=== PATIENT | female | born 1985 | race Caucasian/White ===

== ENCOUNTER 2022-09-09 10:00 | Oncology outpatient (recurring) (ONCR) | payer MEDICARE, MEDICAID, SELFPAY ==
[2022-09-09 12:29] LABS: Basophils # 0.1 10^3/uL (0.0-0.1); Basophils % 0.6 %; Eosinophils # 0.1 10^3/uL (0.0-0.8); Eosinophils % 0.8 %; Hematocrit 42.4 % (37.0-47.0); Hemoglobin 14.2 g/dL (11.5-15.3); Lymphocytes # 4.3 10^3/uL (0.8-4.8); Lymphocytes % 24.9 %; Mean Corpuscular HGB Conc 33.5 g/dL (30.0-36.0); Mean Corpuscular Hemoglobin 29.2 pg (28.0-34.0); Mean Corpuscular Volume 87.1 fl (81-99); Mean Platelet Volume 11.2 fL (7.4-10.4); Monocytes # 1.5 10^3/uL (0.2-0.9); Monocytes % 8.9 %; Neutrophils # 11.15 10^3/uL (1.8-7.7); Neutrophils % 64.1 %; Nucleated Red Blood Cells % 0 %; Platelet Count 337 10^3/cmm (130-400); Red Blood Count 4.87 10^6/uL (4.1-5.3); Red Cell Distribution Width 13.2 % (12.1-15.1); White Blood Count 17.4 10^3/uL (4.0-10.0)
[2022-09-09 12:32] LABS: Erythrocyte Sedimentation Rate 29 mm/hr (0-15)
[2022-09-09 12:51] LABS: LAB Peripheral Smear Sent for Review
[2022-09-09 13:14] LABS: Alanine Aminotransferase 13 U/L (0-33); Albumin Level 3.5 g/dL (3.5-5.2); Alkaline Phosphatase 113 U/L (35-105); Aspartate Amino Transferase 16 U/L (0-32); Blood Urea Nitrogen 13 mg/dL (6-20); C Reactive Protein 10.1 mg/L (0.0-4.9); Calcium 9.1 mg/dL (8.5-10.5); Carbon Dioxide 22 mmol/L (22-29); Chloride 104 mmol/L (98-107); Creatinine Clr Calc Pharmacy 160.4966; Globulin 3.9 g/dL (1.3-4.6); Glomerular Filtration Rate 137.4 mL/min (90-130); Glucose 93 mg/dL (65-115); Lactate Dehydrogenase 143 U/L (135-214); Osmolality Calculated 284 mOsm/kg (285-295); Sodium 137 mmol/L (136-145); Total Bilirubin 0.4 mg/dL (0.15-1.2); Total Protein 7.4 g/dL (6.6-8.7); Vitamin B12 569 pg/mL (232-1245)
== END 2022-10-08 23:59 | disposition home or self-care (01) ==
PROVIDERS: Visit Provider Internal Medicine Medical Oncology
DX: D72.9 Disorder of white blood cells, unspecified (principal)
CPT/HCPCS: 36415; 80053; 82607; 83615; 85025; 85651; 86140; 88374; 99204

== ENCOUNTER 2022-10-09 08:13 | Outpatient (CLI) | payer MEDICARE, MEDICAID, SELFPAY ==
--- NOTE | 2022-10-09 08:30 | US_ITS ---
WS: [id number] INDICATION: RIGHT flank mass TECHNIQUE: Ultrasound soft tissue area of concern FINDINGS: Ultrasound soft tissue area of concern RIGHT rib. Ovoid slightly echogenic nodular area in the area of concern measuring 2.9 x 0.9 x 3.1 cm. This most likely represents incidental subcutaneous lipoma. No other suspicious findings. US/US abdomen limited [id number] IMPRESSION: Palpable nodule in the area of concern most likely represents incid ental subcutaneous lipoma described above.
== END 2022-10-09 08:14 | disposition home or self-care (01) ==
LOC: RAD 08:14
PROVIDERS: Visit Provider Internal Medicine Medical Oncology
DX: R19.00 Intra-abdominal and pelvic swelling, mass and lump, unspecified site (principal)
CPT/HCPCS: 76705

== ENCOUNTER → 2023-03-09 12:26 | Outpatient (BNVA) | payer MEDICARE, MEDICAID, SELFPAY | PROVIDERS: PCP Nurse Practitioner Family; Visit Provider Internal Medicine | DX: Z11.59 Encounter for screening for other viral diseases (principal); R76.8 Other specified abnormal immunological findings in serum; R53.83 Other fatigue; D72.829 Elevated white blood cell count, unspecified; Z79.899 Other long term (current) drug therapy; R07.89 Other chest pain; R79.82 Elevated C-reactive protein (CRP) | CPT/HCPCS: 36415; 71046; 72040; 72072; 72100; 73120; 80053; 81001; 82550; 82607; 83516; 83735; 84100; 84443; 85025; 85651; 86140; 86160; 86162; 86200; 86235; 86255; 86376; 86431; 86704; 86803; 87340; 87522; 99204 ==

== ENCOUNTER → 2023-05-08 11:34 | Outpatient (BNVA) | payer MEDICARE, MEDICAID, SELFPAY | PROVIDERS: PCP Nurse Practitioner Family; Visit Provider Internal Medicine | DX: R76.8 Other specified abnormal immunological findings in serum (principal); R79.82 Elevated C-reactive protein (CRP); B19.20 Unspecified viral hepatitis C without hepatic coma; D72.829 Elevated white blood cell count, unspecified | CPT/HCPCS: 99214 ==

== ENCOUNTER 2023-05-14 06:03 | Outpatient (CLI) | payer MEDICARE, MEDICAID, SELFPAY ==
--- NOTE | 2023-05-14 06:30 | US_ITS ---
WS: [id number] RIGHT UPPER QUADRANT ULTRASOUND HISTORY: B19.20 - Unspecified viral hepatitis C without hepatic coma COMPARISON: 10/09/2022 Liver: 13.7 cm in length. Normal size liver and echogenicity. No bile duct dilatation or mass. Portal Vein: Normal hepatopetal flow with monophasic waveform. Gallbladder: Normally distended gallbladder with no stones or wall thickening. CBD: 0.2 cm Pancreas: Normal size and echogenicity. Right kidney: 10.4 cm in length. Normal size and echogenicity. No hydronephrosis or mass. Aorta and IVC: Unremarkable abdominal aorta and IVC. No ascites. US/US liver [id number] IMPRESSION: Normal RIGHT upper quadrant ultrasound.
== END 2023-05-14 06:04 | disposition home or self-care (01) ==
LOC: RAD 06:04
PROVIDERS: PCP Nurse Practitioner Family; Visit Provider Student in an Organized Health Care Education/Training Program
DX: B19.20 Unspecified viral hepatitis C without hepatic coma (principal); M06.9 Rheumatoid arthritis, unspecified
CPT/HCPCS: 36415; 76705; 86592; 87806; 87902; 99205

== ENCOUNTER → 2023-10-23 09:26 | Outpatient (BNVA) | payer MEDICARE, MEDICAID, SELFPAY | PROVIDERS: PCP Family Medicine; Visit Provider Internal Medicine | DX: R76.8 Other specified abnormal immunological findings in serum (principal); R79.82 Elevated C-reactive protein (CRP); R70.0 Elevated erythrocyte sedimentation rate; D72.829 Elevated white blood cell count, unspecified; B19.20 Unspecified viral hepatitis C without hepatic coma | CPT/HCPCS: 99214 ==

== ENCOUNTER 2024-06-29 11:23 | Outpatient (CLI) | payer MEDICARE, MEDICAID, SELFPAY ==
--- NOTE | 2024-06-29 11:29 | XR_ITS ---
WS: [id number] CHEST 2 VIEWS HISTORY: COUGH, UNSPECIFIED COMPARISON: 03/09/2023 Lungs: Clear with no abnormality. No pleural effusion or pneumothorax. There is a nodule projecting i nferior to the RIGHT diaphragm which is probably a nipple shadow. This was also present on the prior study. Cardiac size: Normal. Mediastinum/Aorta: Normal mediastinum. Bones: Normal. XR/XR chest 2V* [id number] IMPRESSION: Normal chest.
== END 2024-06-29 11:24 | disposition home or self-care (01) ==
PROVIDERS: PCP Family Medicine; Visit Provider Dermatology
DX: C43.59 Malignant melanoma of other part of trunk (principal)
CPT/HCPCS: 71046

== ENCOUNTER → 2024-07-13 11:21 | Outpatient (BNVA) | payer MEDICARE, MEDICAID, SELFPAY | PROVIDERS: PCP Family Medicine; Visit Provider Nurse Practitioner Family | DX: L57.0 Actinic keratosis (principal); L81.3 Cafe au lait spots; D22.5 Melanocytic nevi of trunk; L81.4 Other melanin hyperpigmentation; L57.8 Other skin changes due to chronic exposure to nonionizing radiation; D22.39 Melanocytic nevi of other parts of face; L72.0 Epidermal cyst; Z85.820 Personal history of malignant melanoma of skin | CPT/HCPCS: 17000; 99213 ==

== ENCOUNTER 2024-07-27 12:21 | Oncology outpatient (recurring) (ONCR) | payer MEDICARE, MEDICAID, SELFPAY | END 2024-08-08 23:59 | disposition home or self-care (01) | LOC: ONCMED 12:22 | PROVIDERS: PCP Family Medicine; Visit Provider Dermatology | DX: C43.59 Malignant melanoma of other part of trunk (principal); Z87.891 Personal history of nicotine dependence | CPT/HCPCS: 99215 ==

== ENCOUNTER → 2024-08-02 09:50 | Outpatient (BNVA) | payer MEDICARE, MEDICAID, SELFPAY | PROVIDERS: PCP Family Medicine; Referring Provider Internal Medicine Medical Oncology; Visit Provider Student in an Organized Health Care Education/Training Program | DX: C43.59 Malignant melanoma of other part of trunk (principal) | CPT/HCPCS: 99204 ==

== ENCOUNTER 2024-08-31 06:41 | Outpatient (CLI) | payer MEDICARE, MEDICAID, SELFPAY ==
[2024-08-31] VITALS (12 sets, daily range): BP systolic 126–161; BP diastolic 88–100; PULSE 9–97; RESP 16–19; TEMP 36.4–36.8; O2SAT 92–98; BMI 38.4
[2024-08-31 07:13] LABS: OR HCG Qualitative Urine Negative (Negative)
--- NOTE | 2024-08-31 07:20 | NM_ITS ---
WS: [id number] NUCLEAR MEDICINE SENTINEL LYMPH NODE IMAGING HISTORY: On back check for spread of CA COMPARISON: None available. TECHNIQUE: The patient was injected with 552 uCi Lymphoseek . Injection is intradermal at the site o f the skin lesion along the mid LEFT back. Injection is performed by technologist. No supervision by the radiologist. NM/NM sentinel node inject [id number] IMPRESSION: Technologist injected Lymphoseek injection.
[2024-08-31] MEDS: sodium chloride 0.9% 1,000 ML 30 ML IV (08:57)
--- NOTE | 2024-08-31 09:24 | ANES.PREANE2 ---
Pre-Anesthetic Assessment Height/Weight: Height 1.47 m Weight 83.461 kg Temp Pulse Resp BP Pulse Ox O2 Del Method 97.6 F 84 18 161/92 96 Room Air 08/31/24 07:15 08/31/24 07:15 08/31/24 07:15 08/31/24 07:15 08/31/24 07:15 08/31/24 07:15 Operation Date: 08/31/24 08:55 Proposed Procedures p Sentinal Lymph Node [id number], C43.59(Not Applicable) - Monty Triplett MD Familial anesthetic complications: None Was Beta Eloisa taken within 24 hours: N/A Was Clonidine taken within 24 hours: N/A Last intake: Intake Last Liquid Date 08/30/24 Last Liquid Time 20:15 Last Solid Date 08/30/24 Last Solid Time 20:15 Social No alcohol and No tobacco Exam alert, oriented x 3, clear to auscultation bilaterally and regular rate & rhythm Airway Mallampati: Class II Dentition: full CV/HEM Hypertension Hepatic Hepatitis (hx hep c in chart review) Metabolic Hyperlipidemia Anesthetic Plan ASA status: 3 Anesthesia: General Risk of > 500 ml blood loss (7ml/kg in children): No Medications/Allergies Home Medications Medication Instructions Recorded Confirmed Last Taken Type medroxyprogesterone 150 mg/mL 150 mg IM .every 3 months 09/09/22 08/30/24 08/30/24 History intramuscular suspension (Depo-Provera) atorvastatin 40 mg tablet 40 mg PO DAILY 07/27/24 08/30/24 08/30/24 History doxepin 150 mg capsule 150 mg PO DAILY 07/27/24 08/30/24 08/30/24 History metoprolol succinate 25 mg 25 mg PO DAILY 07/27/24 08/30/24 08/30/24 21:00 History tablet,extended release 24 hr bupropion HCl 100 mg tablet 100 mg PO DAILY 08/30/24 08/30/24 Unknown History sertraline 100 mg tablet 10 mg PO DAILY 08/30/24 08/30/24 Unknown History Allergies Allergy/AdvReac Type Severity Reaction Status Date / Time No Known Allergies Allergy Verified 08/30/24 12:03 Current Medications Generic Name Dose Route Start Last Admin Trade Name Freq PRN Reason Stop Dose Admin Sodium Chloride 1,000 mls @ 30 mls/hr 08/31/24 07:00 08/31/24 08:57 Sodium Chloride 0.9% IV 09/01/24 06:59 30 mls/hr .Q24H KERRY Administration PFSH Anesthesia Medical History History of hepatitis C Treated in 2022 Malignant melanoma Rheumatoid factor positive History of substance abuse History of nephrolithiasis Surgical History History of melanoma excision (06/29/24) Wide excision of left mid back melanoma H/O dilation and curettage 1999 H/O tubal ligation Family History Mother CAD (coronary artery disease) Hypertension Stroke Father Lung disease Grandfather Cancer skin Grandmother Diabetes Unknown Cancer 2 Aunts had breast cancer Diabetes Sister Hypertension Denies family history of Clotting disorder Dementia Hyperlipidemia Psychiatric illness Chronic kidney disease (CKD) Suicide Anesthesia complication Bleeding disorder Social History Smoking and tobacco/nicotine status: former use of tobacco/nicotine Quit status (tobacco/nicotine): not considering quitting Alcohol intake: former Year of sobriety/quit date alcohol: 2014 Substance/Drug Use: former Date of last use: 2017; prior hx of meth and thc Current gender identity: Female Female Reproductive History Spontaneous abortions: No Data Anesthesia Cardiac Studies: No Data to Display
--- NOTE | 2024-08-31 09:54 | W.PM.OPSUD ---
Surgery/Procedure H&P Update DATE OF PROCEDURE: August 31, 2024 DATE H&P PERFORMED: 08/02/24 H&P UPDATE INFORMATION: I have reviewed H&P completed within last 30 days, I have examined patient prior to procedure and No changes to prior documentation PLANNED PROCEDURE: Operation Date: 08/31/24 08:55 Proposed Procedures p Sentinal Lymph Node [id number], C43.59(Not Applicable) - Monty Triplett MD PHYSICAL EXAM: alert, oriented x 3, clear to auscultation bilaterally, regular rate & rhythm and operative site marked OTHER PERTINENT EXAM FINDINGS: Lymphoscintigraphy done. Left axilla marked.
[2024-08-31] MEDS: isosulfan blue 10 mg/mL SDV 5mL SUBCUT (10:20)
[2024-08-31] MEDS: ceFAZolin 2,000 mg SDV 2000 MG IVP (10:30)
--- NOTE | 2024-08-31 11:45 | W.PM.BPON ---
Date of Procedure: 08/31/2024 Surgeon: Dr. Triplett Soft Sugar Cutter(s): None Procedure(s) performed: [place] lymph node biopsy left axilla Findings of the procedure(s): Count of 180 at skin level at site marked by radiology after lymphoscintigraphy. Count of 164 lymph node pack 1, count of 124 lymph node pack 2. Lymph no packs were blue and firm. Axilla inspected at the end of the case and no additional hot, blue or palpable nodes were left behind. Estimated blood loss: 40 cc Specimen(s) removed: 2 packs of sentinel lymph nodes. Post-operative diagnosis: Melanoma
[2024-08-31] MEDS: ondansetron 2 mg/ML SDV 2 mL 4 MG IVP (13:21)
[2024-08-31] MEDS: oxyCODONE 5 mg IR Tab/Cap PO (13:28)
--- NOTE | 2024-08-31 14:15 | ANE.PACU2 ---
Inpatient post-anesthesia follow up: Airway intact: Yes Vital signs: Temperature 97.5 F Pulse Rate 97 Respiratory Rate 18 Blood Pressure 136/90 Pulse Oximetry 93 Oxygen Delivery Me thod Room Air Oxygen Flow Rate 6 Fraction of Inspir ed Oxygen Hydration adequate: Yes Nausea and vomiting: No Pain level: 1 Mental status: Baseline
--- NOTE | 2024-08-31 14:21 | W.PM.BPONFUL ---
Date of Procedure: 08/31/2024 Surgeon: Dr. Triplett Upholstery Parts Sorter(s): None Procedure(s) performed: [place] lymph node biopsy left axilla Findings of the procedure(s): Count of 180 at skin level at site marked by radiology after lymphoscintigraphy. Count of 164 lymph node pack 1, count of 124 lymph node pack 2. Lymph no packs were blue and firm. Axilla inspected at the end of the case and no additional hot, blue or palpable nodes were left behind. Estimated blood loss: 40 cc Specimen(s) removed: 2 packs of sentinel lymph nodes. Post-operative diagnosis: Melanoma Date of Procedure: 08/31/2024 Surgeon: Dr. Triplett Upholstery Parts Sorter(s): N/A Procedure(s) performed: [place] lymph node biopsy of left axilla Findings of the procedure(s): 2 packs of sentinel lymph nodes sent to pathology Estimated blood loss: 40 cc Specimen(s) removed: 2 packs of sentinel lymph nodes sent to pathology Post-operative diagnosis: Melanoma Pathology: 2 packs of sentinel lymph node Implant(s): None Anesthesia: General Anesthesia Complications: None Brief history/preop diagnosis: 39-year-old female with a history of melanoma of the back. After pathology findings it was determined patient needed a sentinel lymph node biopsy. Discussed risk and benefits and patient agreed to proceed. Full operative report: Prior to surgery a lymphoscintigraphy was performed. Radiology marked the site of the sentinel lymph node on left axilla. Patient was brought to the operating room. General anesthesia was induced. Preoperative Ancef was administered. 2 cc of Lymphazurin blue was injected in the dermis at the site of the lesion in the back. The area was massaged for 5 minutes. Patient was then placed supine with the left arm over an extremity table. The left axilla and left chest was prepped and draped in the usual sterile fashion. The gamma probe was used at the site marked by the Radiology Department identifying the sentinel lymph node. Count of 180 was obtained. A 5 cm incision was carried out directly over this area. Dissected down to the deltopectoral fascia using electrocautery. I transected the fascia and started looking for the sentinel lymph node using the gamma probe. I identified 1 pack of lymph nodes that were blue and hot just caudal of the axillary vein. I dissected this first pack using electrocautery. Was dissected out of the body obtain a count of 164 using the gamma probe. I inspected the axilla 1 more time using the gamma probe and identified a second pack of lymph nodes which were in close proximity to the first 1. I then dissected the second pack of lymph nodes using electrocautery and once out of the body I obtained a count of 124. The specimen was sent to pathology. I inspected closely the axilla 1 more time and I did not encounter any other nodes that were hot or blue. I irrigated the axilla copiously with 1 L of normal saline and confirmed adequate hemostasis. I then proceeded to close the deltopectoral fascia using 3-0 Vicryl. I then performed deep dermals using 3-0 Vicryl as well. Skin was closed using strata fix 4-0 Monocryl. Surgical glue was applied on top. Incision was then dressed with dry gauze and a sports bra was applied. Condition: Stable Dispostion: Home
== END 2024-08-31 14:17 | disposition home or self-care (01) ==
PROVIDERS: PCP Family Medicine; Visit Provider Student in an Organized Health Care Education/Training Program
DX: Z85.820 Personal history of malignant melanoma of skin (principal); I10 Essential (primary) hypertension; Z86.19 Personal history of other infectious and parasitic diseases; E78.5 Hyperlipidemia, unspecified; Z87.891 Personal history of nicotine dependence
CPT/HCPCS: 38792; 81025; 88307; 88342; A9520; J0690; J1100; J1171; J2250; J2405; J2704; J3010; J7030; Q9968

== ENCOUNTER → 2024-09-12 10:02 | Outpatient (BNVA) | payer MEDICARE, MEDICAID, SELFPAY | PROVIDERS: PCP Family Medicine; Visit Provider Student in an Organized Health Care Education/Training Program | DX: C43.59 Malignant melanoma of other part of trunk (principal); Z98.890 Other specified postprocedural states | CPT/HCPCS: 99024 ==

== ENCOUNTER → 2025-05-16 07:55 | Outpatient (BNVA) | payer MEDICARE, MEDICAID, SELFPAY | PROVIDERS: PCP Family Medicine; Visit Provider Nurse Practitioner Family | DX: L81.3 Cafe au lait spots (principal); D22.5 Melanocytic nevi of trunk; L81.4 Other melanin hyperpigmentation; L57.8 Other skin changes due to chronic exposure to nonionizing radiation; D22.39 Melanocytic nevi of other parts of face; Z08 Encounter for follow-up examination after completed treatment for malignant neoplasm; Z85.820 Personal history of malignant melanoma of skin; L91.8 Other hypertrophic disorders of the skin; L53.8 Other specified erythematous conditions; R20.8 Other disturbances of skin sensation; Z78.9 Other specified health status; L57.0 Actinic keratosis | CPT/HCPCS: 17000; 17110; 99213 ==

== ENCOUNTER → 2025-06-13 09:44 | Outpatient (BNVA) | payer MEDICARE, MEDICAID, SELFPAY | PROVIDERS: PCP Family Medicine; Visit Provider Nurse Practitioner Family | DX: L91.8 Other hypertrophic disorders of the skin (principal); L30.4 Erythema intertrigo; D22.5 Melanocytic nevi of trunk; L81.3 Cafe au lait spots; Z08 Encounter for follow-up examination after completed treatment for malignant neoplasm; Z85.820 Personal history of malignant melanoma of skin | CPT/HCPCS: 99213 ==

== ENCOUNTER → 2025-10-23 13:27 | Outpatient (BNVA) | payer MEDICARE, MEDICAID, SELFPAY | PROVIDERS: PCP Family Medicine; Visit Provider Nurse Practitioner Family | DX: L30.4 Erythema intertrigo (principal); L81.3 Cafe au lait spots; Z08 Encounter for follow-up examination after completed treatment for malignant neoplasm; Z85.820 Personal history of malignant melanoma of skin; L90.8 Other atrophic disorders of skin | CPT/HCPCS: 17110; 99213 ==